=== PATIENT | female | born 1990 | race Caucasian/White ===

== ENCOUNTER 2017-05-15 20:52 | Emergency (ER) | payer OTHER, MEDICAID ==
[~2017-05-15] VITALS: Ht 175.3 cm; Wt 88.5 kg
[~2017-05-15 20:52] MED LIST: ACETAMINOPHEN-1 EAC1 PO; AMOXICILLIN 50500 M1 PO; AUGMENTIN 875875 MG PO; BACTRIM DS TAB1 EACH; BACTRIM DS TAB1 EACH PO; CIPRO250 M2 PO; CIPRO500 M1 PO; CIPRO500 MG PO; CIPROFLOXACIN500 M1 PO; CLEOCIN HCL150 MG PO; CORTISPORIN OTI10 M2 OTIC; DIAZEPAM 5 MG5 M1 OR; FLAGYL500 MG PO; FLEXERIL PO; HYDROCODON-ACE1 EAC7 PO; HYDROCODONE-AP1 EAC6 PO; IBUPROFEN 400400 M1 PO; IBUPROFEN 600600 M1 PO; IBUPROFEN 800800 M1 PO; IBUPROFEN 800800 MG PO; IRON; IRON325; IRON325 PO; LIDOCAINE VISC100 ML SWISH&SPIT; MACROBID 100 M100 M1 PO; MEDROLDOSEPACK PO; NAPROSYN500 MG PO; NORCO 5-325 TA1 EAC1 PO; NORCO 5-325 TA1 EACH PO; PERCOCET 5-3251 EACH PO; PYRIDIUM100 M1 PO; SILVADENE20 GM TP; TORADOL 10 MG T10 MG PO; TRAMADOL 50 MG50 MG PO; ULTRAM 50MG TAB50 MG PO; ZOFRAN ODT4 MG PO; ZOFRAN4 MG PO
[2017-05-15 21:15] LABS: URINE BILIRUBIN NEGATIVE (Negative); URINE BLOOD 3+ (Negative); URINE CLARITY CLEAR; URINE COLOR YELLOW; URINE GLUCOSE-RANDOM NEGATIVE (Negative); URINE KETONES NEGATIVE (Negative); URINE NITRITE-REFLEX NEGATIVE (Negative); URINE PROTEIN NEGATIVE (Negative); URINE SPECIFIC GRAVITY <= 1.005 (1.005-1.030); URINE UROBILINOGEN 0.2 E.U./dl (0.2-1.0)
[2017-05-15 21:16] LABS: URINE LEUKOCYTES-REFLEX 3+ (Negative)
[2017-05-15 21:24] LABS: ABSOLUTE MONOCYTES 0.9 thou/uL (0.0-1.2); ABSOLUTE NEUTROPHILS 11.6 thou/uL (1.6-8.1); BASOPHILS 0.3 %; EOSINOPHILS 0.3 %; HEMATOCRIT 43.8 % (37.0-47.0); HEMOGLOBIN 14.4 gm/dL (12.0-15.0); LYMPHOCYTES 13.5 %; MCH 27.2 pg (26.0-34.0); MCHC 32.9 g/dL (28.0-37.0); MCV 82.7 fL (80.0-100.0); MONOCYTES 6.5 %; MPV 7.9 fl. (7.2-11.1); NUCLEATED RBCS 0 /100WBC; PLATELET COUNT* 267 thou/uL (150-400); POLYS 79.4 %; RDW-CV 16.9 % (10.5-14.5); WBC 14.6 thou/uL (4.0-11.0)
[2017-05-15 21:25] LABS: BACTERIA-REFLEX 1-9 Few /HPF (None Seen); CASTS None Seen /LPF (None Seen); CRYSTALS None Seen /LPF (None Seen); SQUAMOUS 4-10 Moderate /LPF (0-3)
[2017-05-15 21:31] LABS: CALCIUM 9.4 mg/dL (8.5-10.1); CREATININE 0.8 mg/dL (0.6-1.3); POTASSIUM 3.6 mmol/L (3.5-5.1)
[2017-05-15 21:36] LABS: ALBUMIN 4.1 g/dL (3.4-5.0); TOTAL BILIRUBIN 0.3 mg/dL (<0.1-1.0); TOTAL PROTEIN 7.8 g/dL (6.4-8.2)
[2017-05-15] MEDS ORDERED: ONDANSETRON HCL4 M2 PO (22:23)
[2017-05-15] MEDS ORDERED: BACTRIM DS TAB1 EACH PO (22:23)
[2017-05-15] MEDS ORDERED: HYDROCODONE-AP1 EAC6 PO (22:23)
[2017-05-15 22:45] VITALS: BP 108/84
[2017-07-02] MEDS ORDERED: MEDROLDOSEPACK PO (15:01)
[2017-07-02] MEDS ORDERED: CYCLOBENZAPRINE10 MG PO (15:01)
[2017-07-02] MEDS ORDERED: BACTRIM DS TAB1 EACH PO (15:19)
== END 2017-05-15 22:46 | disposition home or self-care (01) ==
LOC: M.ERS 20:52
PROVIDERS: Physician Assistant
DX: N39.0 Urinary tract infection, site not specified (principal); Z90.49 Acquired absence of other specified parts of digestive tract

== ENCOUNTER 2017-07-02 14:38 | Emergency (ER) | payer OTHER, MEDICAID ==
[~2017-07-02] VITALS: Ht 175.3 cm; Wt 70.3 kg
[~2017-07-02 14:38] MED LIST changes: +ONDANSETRON HCL4 M2 PO
[2017-07-02] MEDS ORDERED: MEDROLDOSEPACK PO ×2 (15:01)
[2017-07-02] MEDS ORDERED: CYCLOBENZAPRINE10 MG PO ×2 (15:01)
[2017-07-02 15:09] LABS: URINE BILIRUBIN NEGATIVE (Negative); URINE BLOOD 3+ (Negative); URINE CLARITY CLEAR; URINE COLOR YELLOW; URINE GLUCOSE-RANDOM NEGATIVE (Negative); URINE KETONES NEGATIVE (Negative); URINE NITRITE-REFLEX NEGATIVE (Negative); URINE PROTEIN NEGATIVE (Negative); URINE UROBILINOGEN 0.2 E.U./dl (0.2-1.0)
[2017-07-02 15:10] LABS: URINE LEUKOCYTES-REFLEX 2+ (Negative)
[2017-07-02 15:16] LABS: HYALINE CASTS 4-10 Moderate /LPF (None Seen); MUCUS >6 Heavy strn/LPF (None Seen); SQUAMOUS >10 Many /LPF (0-3)
[2017-07-02 15:17] LABS: BACTERIA-REFLEX >30 Many /HPF (None Seen); CRYSTALS None Seen /LPF (None Seen); URINE RBC 3-10 Few /HPF (0-2); URINE WBC-REFLEX >25 Many /HPF (0-5)
[2017-07-02] MEDS ORDERED: BACTRIM DS TAB1 EACH PO ×2 (15:19)
[2017-07-02 15:23] VITALS: BP 114/70
== END 2017-07-02 15:24 | disposition home or self-care (01) ==
LOC: M.ERS 14:38
PROVIDERS: Nurse Practitioner Family
DX: M54.41 Lumbago with sciatica, right side (principal); N39.0 Urinary tract infection, site not specified; Z90.49 Acquired absence of other specified parts of digestive tract; F17.210 Nicotine dependence, cigarettes, uncomplicated

== ENCOUNTER 2017-07-04 16:23 | Emergency (ER) | payer OTHER, MEDICAID ==
[~2017-07-04] VITALS: Ht 175.3 cm; Wt 70.3 kg
[~2017-07-04 16:23] MED LIST changes: +CYCLOBENZAPRINE10 MG PO
[2017-07-04] MEDS ORDERED: SSD CREAM 1% 5050 GM TOP (16:43)
[2017-07-04 17:07] VITALS: BP 97/67
[2017-07-05] MEDS ORDERED: IBUPROFEN 800800 M1 PO (19:08)
[2017-07-05] MEDS ORDERED: HYDROCODONE-AP1 EAC6 PO (19:08)
== END 2017-07-04 17:08 | disposition home or self-care (01) ==
LOC: M.ERS 16:23
DX: T23.101A Burn of first degree of right hand, unspecified site, initial encounter (principal); T31.0 Burns involving less than 10% of body surface; F17.210 Nicotine dependence, cigarettes, uncomplicated; X15.8XXA Contact with other hot household appliances, initial encounter; Y93.89 Activity, other specified; Y92.89 Other specified places as the place of occurrence of the external cause; Y99.8 Other external cause status

== ENCOUNTER 2017-07-05 18:41 | Emergency (ER) | payer OTHER, MEDICAID ==
[~2017-07-05] VITALS: Ht 175.3 cm; Wt 70.3 kg
[~2017-07-05 18:41] MED LIST changes: +SSD CREAM 1% 5050 GM TOP
[2017-07-05] MEDS ORDERED: IBUPROFEN 800800 M1 PO (19:08)
[2017-07-05] MEDS ORDERED: HYDROCODONE-AP1 EAC6 PO (19:08)
[2017-07-05 19:28] VITALS: BP 146/77
== END 2017-07-05 19:29 | disposition home or self-care (01) ==
LOC: M.ERS 18:41
DX: T23.051A Burn of unspecified degree of right palm, initial encounter (principal); T31.0 Burns involving less than 10% of body surface; Z90.49 Acquired absence of other specified parts of digestive tract; X08.8XXA Exposure to other specified smoke, fire and flames, initial encounter; Y93.89 Activity, other specified; Y92.89 Other specified places as the place of occurrence of the external cause; Y99.8 Other external cause status

== ENCOUNTER 2017-09-14 23:05 | Emergency (ER) | payer OTHER, MEDICAID ==
[~2017-09-14] VITALS: Ht 175.3 cm; Wt 68.0 kg
[2017-09-15] MEDS ORDERED: IBUPROFEN 600600 M1 PO (00:14)
[2017-09-15] MEDS ORDERED: TRAMADOL 50 MG50 MG PO (00:14)
[2017-09-15 00:20] VITALS: BP 117/79
== END 2017-09-15 00:20 | disposition home or self-care (01) ==
LOC: M.ERS 23:05
DX: S90.32XA Contusion of left foot, initial encounter (principal); F17.210 Nicotine dependence, cigarettes, uncomplicated; Z90.49 Acquired absence of other specified parts of digestive tract; W22.8XXA Striking against or struck by other objects, initial encounter; Y93.89 Activity, other specified; Y92.89 Other specified places as the place of occurrence of the external cause; Y99.8 Other external cause status

== ENCOUNTER 2017-11-11 15:58 | Emergency (ER) | payer OTHER, MEDICAID ==
[~2017-11-11] VITALS: Ht 175.3 cm; Wt 65.8 kg
[2017-11-11] MEDS ORDERED: NORCO 5-325 TA1 EAC1 PO (16:55)
[2017-11-11 17:05] VITALS: BP 106/62
== END 2017-11-11 17:06 | disposition home or self-care (01) ==
LOC: M.ERS 15:58
DX: S00.11XA Contusion of right eyelid and periocular area, initial encounter (principal); W21.07XA Struck by softball, initial encounter; Y93.89 Activity, other specified; Y92.89 Other specified places as the place of occurrence of the external cause; Y99.8 Other external cause status; F17.210 Nicotine dependence, cigarettes, uncomplicated; Z90.49 Acquired absence of other specified parts of digestive tract

== ENCOUNTER 2017-11-29 23:16 | Emergency (ER) | payer OTHER, MEDICAID ==
[~2017-11-29] VITALS: Ht 175.3 cm; Wt 68.0 kg
[2017-11-30 00:29] VITALS: BP 114/75
== END 2017-11-30 00:31 | disposition home or self-care (01) ==
LOC: M.ERS 23:16
DX: S20.211A Contusion of right front wall of thorax, initial encounter (principal); R07.81 Pleurodynia; W21.07XA Struck by softball, initial encounter; Y93.64 Activity, baseball; Y92.89 Other specified places as the place of occurrence of the external cause; Y99.8 Other external cause status; Z90.49 Acquired absence of other specified parts of digestive tract; F17.210 Nicotine dependence, cigarettes, uncomplicated

== ENCOUNTER 2018-02-25 20:19 | Emergency (ER) | payer OTHER, MEDICAID ==
[~2018-02-25] VITALS: Ht 175.3 cm; Wt 68.0 kg
[2018-02-25] MEDS ORDERED: IBUPROFEN 800800 M1 PO (20:46)
[2018-02-25] MEDS ORDERED: CENTANY30 GM TOP (20:46)
[2018-02-25 21:12] VITALS: BP 106/67
== END 2018-02-25 21:12 | disposition home or self-care (01) ==
LOC: M.ERS 20:19
DX: S81.811A Laceration without foreign body, right lower leg, initial encounter (principal); F17.210 Nicotine dependence, cigarettes, uncomplicated; Z90.49 Acquired absence of other specified parts of digestive tract; W26.8XXA Contact with other sharp object(s), not elsewhere classified, initial encounter; Y93.89 Activity, other specified; Y92.89 Other specified places as the place of occurrence of the external cause; Y99.8 Other external cause status

== ENCOUNTER 2018-05-02 17:47 | Emergency (ER) | payer OTHER, MEDICAID ==
[~2018-05-02] VITALS: Ht 175.3 cm; Wt 70.3 kg
[~2018-05-02 17:47] MED LIST changes: +CENTANY30 GM TOP
[2018-05-02 18:43] LABS: ABSOLUTE BASOPHILS 0.1 thou/uL (0.0-0.2); ABSOLUTE EOSINOPHILS 0.1 thou/uL (0.0-0.7); ABSOLUTE LYMPHOCYTES 1.7 thou/uL (0.8-5.3); ABSOLUTE MONOCYTES 0.7 thou/uL (0.0-1.2); ABSOLUTE NEUTROPHILS 9.1 thou/uL (1.6-8.1); BASOPHILS 0.5 %; EOSINOPHILS 0.8 %; HEMATOCRIT 40.9 % (37.0-47.0); HEMOGLOBIN 13.4 gm/dL (12.0-15.0); LYMPHOCYTES 14.7 %; MCHC 32.9 g/dL (28.0-37.0); MONOCYTES 6.1 %; MPV 7.8 fl. (7.2-11.1); NUCLEATED RBCS 0 /100WBC; PLATELET COUNT* 295 thou/uL (150-400); POLYS 77.9 %; RBC 4.98 mil/uL (4.20-5.00); RDW-CV 15.5 % (10.5-14.5); WBC 11.7 thou/uL (4.0-11.0)
[2018-05-02 18:56] LABS: ALBUMIN 3.5 g/dL (3.4-5.0); CALCIUM 8.8 mg/dL (8.5-10.1); CREATININE 0.9 mg/dL (0.6-1.3); POTASSIUM 3.9 mmol/L (3.5-5.1); TOTAL BILIRUBIN 0.2 mg/dL (<0.1-1.0); TOTAL PROTEIN 7.3 g/dL (6.4-8.2)
[2018-05-02] MEDS ORDERED: ONDANSETRON HCL4 M2 PO (20:33)
[2018-05-02] MEDS ORDERED: ACETAMINOPHEN-1 EAC1 PO (20:33)
[2018-05-02] MEDS ORDERED: NABUMETONE 750750 M1 PO (20:33)
[2018-05-02 20:45] LABS: URINE BILIRUBIN NEGATIVE (Negative); URINE BLOOD 3+ (Negative); URINE CLARITY CLEAR; URINE COLOR YELLOW; URINE GLUCOSE-RANDOM NEGATIVE (Negative); URINE KETONES NEGATIVE (Negative); URINE LEUKOCYTES-REFLEX NEGATIVE (Negative); URINE NITRITE-REFLEX NEGATIVE (Negative); URINE PROTEIN NEGATIVE (Negative); URINE SPECIFIC GRAVITY <= 1.005 (1.005-1.030); URINE UROBILINOGEN 0.2 E.U./dl (0.2-1.0)
[2018-05-02 21:14] LABS: BACTERIA-REFLEX 1-9 Few /HPF (None Seen); CASTS None Seen /LPF (None Seen); CRYSTALS None Seen /LPF (None Seen); MUCUS None Seen strn/LPF (None Seen); SQUAMOUS 4-10 Moderate /LPF (0-3)
[2018-05-02 21:16] LABS: URINE RBC 3-10 Few /HPF (0-2)
[2018-05-02 21:17] LABS: URINE WBC-REFLEX None Seen /HPF (0-5)
[2018-05-02 21:27] VITALS: BP 107/69
== END 2018-05-02 21:30 | disposition home or self-care (01) ==
LOC: M.ERS 17:47
PROVIDERS: Nurse Practitioner Family
DX: R10.31 Right lower quadrant pain (principal); R19.7 Diarrhea, unspecified; F17.210 Nicotine dependence, cigarettes, uncomplicated; Z90.49 Acquired absence of other specified parts of digestive tract

== ENCOUNTER 2018-06-18 13:32 | Emergency (ER) | payer OTHER, MEDICAID ==
[~2018-06-18] VITALS: Ht 175.3 cm; Wt 70.3 kg
[~2018-06-18 13:32] MED LIST changes: +NABUMETONE 750750 M1 PO
[2018-06-18] MEDS ORDERED: NABUMETONE 750750 M1 PO (15:38)
[2018-06-18] MEDS ORDERED: ZANAFLEX4 MG PO (15:38)
[2018-06-18 15:48] VITALS: BP 118/68
== END 2018-06-18 15:51 | disposition home or self-care (01) ==
LOC: M.ERS 13:32
DX: S00.12XA Contusion of left eyelid and periocular area, initial encounter (principal); S00.83XA Contusion of other part of head, initial encounter; J32.9 Chronic sinusitis, unspecified; Z90.49 Acquired absence of other specified parts of digestive tract; F17.210 Nicotine dependence, cigarettes, uncomplicated; Y04.2XXA Assault by strike against or bumped into by another person, initial encounter; Y93.89 Activity, other specified; Y92.89 Other specified places as the place of occurrence of the external cause; Y99.8 Other external cause status

== ENCOUNTER 2018-06-22 15:57 | Emergency (ER) | payer OTHER, MEDICAID ==
[~2018-06-22] VITALS: Ht 175.3 cm; Wt 70.3 kg
[~2018-06-22 15:57] MED LIST changes: +ZANAFLEX4 MG PO
[2018-06-22 16:03] VITALS: BP 108/49
[2018-06-22] MEDS ORDERED: NOHOMEMEDICATIONS (16:07)
== END 2018-06-22 16:30 | disposition left against medical advice (07) ==
LOC: M.ERS 15:57
DX: S60.211A Contusion of right wrist, initial encounter (principal); F17.210 Nicotine dependence, cigarettes, uncomplicated; Z90.49 Acquired absence of other specified parts of digestive tract; W10.8XXA Fall (on) (from) other stairs and steps, initial encounter; Y93.89 Activity, other specified; Y92.89 Other specified places as the place of occurrence of the external cause; Y99.8 Other external cause status

== ENCOUNTER 2018-09-20 14:40 | Emergency (ER) | payer OTHER, MEDICAID ==
[~2018-09-20] VITALS: Ht 175.3 cm; Wt 70.3 kg
[~2018-09-20 14:40] MED LIST changes: +NOHOMEMEDICATIONS
[2018-09-20] MEDS ORDERED: IBUPROFEN 800800 MG PO (15:43)
[2018-09-20] MEDS ORDERED: ACETAMINOPHEN-1 EAC1 PO (15:43)
[2018-09-20 16:01] VITALS: BP 114/76
== END 2018-09-20 16:02 | disposition home or self-care (01) ==
LOC: M.ERS 14:40
DX: T25.192A Burn of first degree of multiple sites of left ankle and foot, initial encounter (principal); T25.191A Burn of first degree of multiple sites of right ankle and foot, initial encounter; F17.210 Nicotine dependence, cigarettes, uncomplicated; F10.10 Alcohol abuse, uncomplicated; Z90.49 Acquired absence of other specified parts of digestive tract; X10.2XXA Contact with fats and cooking oils, initial encounter; Y93.89 Activity, other specified; Y92.89 Other specified places as the place of occurrence of the external cause; Y99.8 Other external cause status

== ENCOUNTER 2018-12-27 16:36 | Emergency (ER) | payer OTHER, MEDICAID ==
[~2018-12-27] VITALS: Ht 175.3 cm; Wt 70.3 kg
[2018-12-27 16:44] VITALS: BP 124/80
[2018-12-27] MEDS ORDERED: TYLENOL WITH CO1 TA1 PO (16:48)
[2018-12-27] MEDS ORDERED: PENICILLIN V P500 MG PO ×2 (16:48→16:49)
[2018-12-27] MEDS ORDERED: NAPROSYN500 MG PO ×2 (16:48→16:49)
== END 2018-12-27 16:55 | disposition home or self-care (01) ==
LOC: M.ERS 16:36
DX: K04.7 Periapical abscess without sinus (principal); F17.210 Nicotine dependence, cigarettes, uncomplicated; Z90.49 Acquired absence of other specified parts of digestive tract

== ENCOUNTER 2019-12-31 13:58 | Emergency (ER) | payer OTHER, MEDICAID ==
[~2019-12-31] VITALS: Ht 175.3 cm; Wt 72.6 kg
[~2019-12-31 13:58] MED LIST changes: +PENICILLIN V P500 MG PO; +TYLENOL WITH CO1 TA1 PO
[2019-12-31 15:24] LABS: URINE BILIRUBIN NEGATIVE (Negative); URINE BLOOD 3+ (Negative); URINE CLARITY CLEAR; URINE COLOR YELLOW; URINE GLUCOSE-RANDOM NEGATIVE (Negative); URINE KETONES NEGATIVE (Negative); URINE NITRITE-REFLEX NEGATIVE (Negative); URINE PROTEIN NEGATIVE (Negative); URINE UROBILINOGEN 0.2 E.U./dl (0.2-1.0)
[2019-12-31 15:31] LABS: URINE LEUKOCYTES-REFLEX 3+ (Negative)
[2019-12-31 15:46] LABS: SQUAMOUS >10 Many /LPF (0-3)
[2019-12-31 15:47] LABS: BACTERIA-REFLEX >30 Many /HPF (None Seen); URINE RBC >20 Many /HPF (0-2); WBC CLUMPS Few (None Seen)
[2019-12-31 15:54] LABS: CASTS None Seen /LPF (None Seen); CRYSTALS None Seen /LPF (None Seen); MUCUS 0-3 Light strn/LPF (None Seen)
[2019-12-31 16:28] LABS: ABSOLUTE BASOPHILS 0.1 thou/uL (0.0-0.2); ABSOLUTE LYMPHOCYTES 1.8 thou/uL (0.8-5.3); ABSOLUTE MONOCYTES 0.8 thou/uL (0.0-1.2); ABSOLUTE NEUTROPHILS 10.6 thou/uL (1.6-8.1); BASOPHILS 0.4 %; EOSINOPHILS 0.2 %; HEMATOCRIT 44.6 % (37.0-47.0); HEMOGLOBIN 14.5 gm/dL (12.0-15.0); LYMPHOCYTES 13.9 %; MCH 28.4 pg (26.0-34.0); MCHC 32.5 g/dL (28.0-37.0); MCV 87.4 fL (80.0-100.0); MONOCYTES 6.1 %; MPV 8.1 fl. (7.2-11.1); NUCLEATED RBCS 0 /100WBC; PLATELET COUNT* 255 thou/uL (150-400); POLYS 79.4 %; RDW-CV 14.8 % (10.5-14.5); WBC 13.3 thou/uL (4.0-11.0)
[2019-12-31 16:38] LABS: CALCIUM 9.3 mg/dL (8.5-10.1); CREATININE 0.9 mg/dL (0.6-1.3)
[2019-12-31 16:42] LABS: TOTAL BILIRUBIN 0.3 mg/dL (<0.1-1.0)
[2019-12-31] MEDS ORDERED: NORCO 5-325 TA1 EAC2 PO (17:28)
[2019-12-31] MEDS ORDERED: CIPROFLOXACIN500 M1 PO (17:28)
[2019-12-31 18:10] VITALS: BP 114/61
== END 2019-12-31 18:11 | disposition home or self-care (01) ==
LOC: M.ERS 13:58
PROVIDERS: Family Medicine; Nurse Practitioner Family
DX: N39.0 Urinary tract infection, site not specified (principal); F17.210 Nicotine dependence, cigarettes, uncomplicated; Z90.49 Acquired absence of other specified parts of digestive tract

== ENCOUNTER → 2020-01-08 | Outpatient (CLI) | payer OTHER, MEDICAID ==
[~2020-01-08] MED LIST changes: +ACETAMINOPHEN325 M1 PO; +NORCO 5-325 TA1 EAC2 PO; +TIZANIDINE HCL 22 M1 PO
== END ==
LOC: M.PC 08:40
PROVIDERS: ATTEND Physical Medicine & Rehabilitation
DX: M25.561 Pain in right knee (principal); M25.562 Pain in left knee; F17.210 Nicotine dependence, cigarettes, uncomplicated

== ENCOUNTER → 2020-01-29 | Outpatient (CLI) | payer OTHER, MEDICAID | END | disposition home or self-care (01) | LOC: M.PC 09:40 | PROVIDERS: ATTEND Physical Medicine & Rehabilitation | DX: M25.561 Pain in right knee (principal); M25.562 Pain in left knee; J32.8 Other chronic sinusitis; F17.210 Nicotine dependence, cigarettes, uncomplicated; Z98.890 Other specified postprocedural states; Z79.899 Other long term (current) drug therapy ==

== ENCOUNTER → 2020-02-05 | Outpatient (CLI) | payer OTHER, MEDICAID | LOC: M.LAB 15:10 | PROVIDERS: ATTEND Physical Medicine & Rehabilitation | DX: Z01.812 Encounter for preprocedural laboratory examination (principal); Z20.828 Contact with and (suspected) exposure to other viral communicable diseases ==

== ENCOUNTER → 2020-03-23 | Outpatient (CLI) | payer OTHER, MEDICAID | LOC: M.PC 10:23 | PROVIDERS: ATTEND Physical Medicine & Rehabilitation | DX: M25.561 Pain in right knee (principal); M25.562 Pain in left knee; Z96.651 Presence of right artificial knee joint ==

== ENCOUNTER 2020-10-12 10:50 | Emergency (ER) | payer OTHER, MEDICAID ==
[~2020-10-12] VITALS: Ht 175.3 cm; Wt 72.6 kg
[2020-10-12 11:26] LABS: URINE BILIRUBIN NEGATIVE (Negative); URINE BLOOD TRACE (Negative); URINE CLARITY CLEAR; URINE COLOR YELLOW; URINE GLUCOSE-RANDOM NEGATIVE (Negative); URINE KETONES NEGATIVE (Negative); URINE NITRITE-REFLEX NEGATIVE (Negative); URINE PROTEIN NEGATIVE (Negative); URINE UROBILINOGEN 0.2 E.U./dl (0.2-1.0)
[2020-10-12 11:31] LABS: URINE LEUKOCYTES-REFLEX 3+ (Negative)
[2020-10-12 11:34] LABS: ABSOLUTE BASOPHILS 0.1 thou/uL (0.0-0.2); ABSOLUTE EOSINOPHILS 0.1 thou/uL (0.0-0.7); ABSOLUTE LYMPHOCYTES 1.9 thou/uL (0.8-5.3); ABSOLUTE MONOCYTES 0.9 thou/uL (0.0-1.2); ABSOLUTE NEUTROPHILS 8.6 thou/uL (1.6-8.1); BASOPHILS 0.7 %; EOSINOPHILS 0.8 %; HEMATOCRIT 40.9 % (37.0-47.0); HEMOGLOBIN 12.8 gm/dL (12.0-15.0); LYMPHOCYTES 16.6 %; MCH 26.6 pg (26.0-34.0); MCHC 31.4 g/dL (28.0-37.0); MCV 84.8 fL (80.0-100.0); MONOCYTES 7.7 %; MPV 7.9 fl. (7.2-11.1); NUCLEATED RBCS 0 /100WBC; PLATELET COUNT* 266 thou/uL (150-400); POLYS 74.2 %; RBC 4.82 mil/uL (4.20-5.00); RDW-CV 15.6 % (10.5-14.5); WBC 11.5 thou/uL (4.0-11.0)
[2020-10-12 11:36] LABS: SQUAMOUS 0-3 Few /LPF (0-3); URINE RBC 0-2 Rare /HPF (0-2); URINE WBC-REFLEX 0-5 Rare /HPF (0-5)
[2020-10-12 11:37] LABS: CASTS None Seen /LPF (None Seen); CRYSTALS None Seen /LPF (None Seen)
[2020-10-12 11:44] LABS: CALCIUM 8.3 mg/dL (8.5-10.1); CREATININE 0.8 mg/dL (0.6-1.3); POTASSIUM 3.9 mmol/L (3.5-5.1)
[2020-10-12 11:48] LABS: ALBUMIN 3.5 g/dL (3.4-5.0); TOTAL BILIRUBIN 0.3 mg/dL (<0.1-1.0); TOTAL PROTEIN 7.2 g/dL (6.4-8.2)
[2020-10-12] MEDS ORDERED: MACROBID 100 M100 M2 PO (12:47)
[2020-10-12] MEDS ORDERED: ZOFRAN ODT4 MG PO (12:47)
[2020-10-12] MEDS ORDERED: DICYCLOMINE HCL20 MG PO (12:47)
[2020-10-12] MEDS ORDERED: IBUPROFEN 800800 M1 PO (12:47)
[2020-10-12 13:11] VITALS: BP 106/66
== END 2020-10-12 13:14 | disposition home or self-care (01) ==
LOC: M.ERS 10:50
PROVIDERS: Nurse Practitioner Family
DX: N39.0 Urinary tract infection, site not specified (principal); F17.210 Nicotine dependence, cigarettes, uncomplicated; Z90.49 Acquired absence of other specified parts of digestive tract; Z98.890 Other specified postprocedural states; Z79.899 Other long term (current) drug therapy